=== PATIENT | female | born 1985 | race Caucasian/White ===

== ENCOUNTER → 2022-03-14 | Outpatient (CLI) | payer OTHER ==
--- NOTE | 2022-03-14 10:03 | MM ---
Reason for Exam: Clinical finding. Baseline mammogram. Indicated Problems: Lump or thickening of the left side for 2 Month(s). Patient History: Menarche at age 10. Mother had breast cancer at or over age 50. Last menstrual period: 02/17/2022 Risk Values: Marielle 5 year model risk: 0.9%. NCI Lifetime model risk: 19.6%. Prior Study Comparison: Patient's first Mammogram. Tissue Density: The breast tissue is heterogeneously dense. This may lower the sensitivity of mammography. Findings: Analyzed By CAD. 2.8 cm mass at the site of clinical concern left breast which correlates to the proximal 10:00 position. There is an additional 12:00 mass measuring 1.7 cm. Ultrasound of the left breast is advised. No definite masses of the right breast. Bilateral calcifications are noted. Overall Assessment: Incomplete: need additional imaging evaluation, BI-RAD 0 Management: Diagnostic Breast Ultrasound of the left breast. A clinical breast exam by your physician is recommended on an annual basis and results should be correlated with mammographic findings. This exam should not preclude additional follow-up of suspicious palpable abnormalities. Results were given to the patient verbally at the time of exam. Electronically signed and approved by: Antonio Decker M.D. Radiologis
--- NOTE | 2022-03-14 10:46 | USB ---
Reason for Exam: Clinical finding. Patient History: Menarche at age 10. Mother had breast cancer at or over age 50. Risk Values: Marielle 5 year model risk: 0.9%. NCI Lifetime model risk: 19.6%. Findings: The whole breast of the left breast, the area of palpable concern of the left breast and the axilla of the left breast were scanned. 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 10:00 mass measures 2.5 x 1.0 cm. 11:00 lesion measures 8 mm 12:00 lesion measures 1.5 cm additional 12:00 lesion measures 8 mm. Precautionary six-month follow-up recommended. Overall Assessment: Probably benign, BI-RAD 3 Management: Diagnostic Breast Ultrasound of the left breast in 6 months. A clinical breast exam by your physician is recommended on an annual basis and results should be correlated with mammographic findings. This exam should not preclude additional follow-up of suspicious palpable abnormalities. Results were given to the patient verbally at the time of exam. Electronically signed and approved by: Antonio Decker M.D. Radiologis
== END | disposition home or self-care (01) ==
LOC: RADMAMWWP 09:33
PROVIDERS: ATTEND Family Medicine
DX: N63.24 Unspecified lump in the left breast, lower inner quadrant (principal); Z80.3 Family history of malignant neoplasm of breast
CPT/HCPCS: 77066

== ENCOUNTER → 2022-08-22 | Outpatient (CLI) | payer OTHER ==
--- NOTE | 2022-08-22 15:15 | USB ---
Reason for Exam: Follow-up at short interval from prior study. Patient History: Menarche at age 10. Mother had breast cancer at or over age 50. Risk Values: Marielle 5 year model risk: 0.9%. NCI Lifetime model risk: 19.6%. Technique: Method: Targeted. Prior Study Comparison: 03/14/2022 Left US breast LT, [facility]. 03/14/2022 Bilateral MG diagnostic mammo w CAD GAGAN, [facility]. Findings: The area of palpable concern of the left breast, the medial section of the breast of the left breast, the axilla of the left breast and the retroareolar of the left breast were scanned. Limited ultrasound left breast from 7-12 o'clock was performed with additional evaluation the nipple and axilla. Stable ovoid hypoechoic mass that is parallel in orientation with circumscribed margin and internal color flow at 10:00 6 cm from the nipple. No posterior acoustic features. This measures 2.3 x 1.0 x 2.0 cm, previously 2.5 x 1.0 x 2.3 cm. Additional similar appearing mass within at 12:00 2 cm from the nipple measuring 1.6 x 0.9 x 1.5 cm, previously 1.6 x 0.9 x 1.5 cm. The third similar mass is identified at 12:00 2 cm of the nipple measuring 0.7 x 0.3 x 0.5 cm. Previously measured 0.7 x 0.4 x 0.5 cm. These probably represent fibroadenomas. Additional mass previously seen ultrasound at 8:00 2 cm from the nipple was not appreciated to examine may represent normal breast tissue. Overall Assessment: Probably benign, BI-RAD 3 Management: Diagnostic Breast Ultrasound of the left breast in 6 months. A clinical breast exam by your physician is recommended on an annual basis and results should be correlated with mammographic findings. This exam should not preclude additional follow-up of suspicious palpable abnormalities. Results were given to the patient verbally at the time of exam. Electronically signed and approved by: Adi Andrea D.O.
== END | disposition home or self-care (01) ==
LOC: RADUSWWP 14:31
PROVIDERS: ATTEND Family Medicine
DX: R92.8 Other abnormal and inconclusive findings on diagnostic imaging of breast (principal); Z80.3 Family history of malignant neoplasm of breast

== ENCOUNTER → 2023-02-21 | Outpatient (CLI) | payer OTHER ==
--- NOTE | 2023-02-21 10:19 | USB ---
Reason for Exam: Follow-up at short interval from prior study. Patient History: Menarche at age 10. Mother had breast cancer at or over age 50. Risk Values: Marielle 5 year model risk: 1.0%. NCI Lifetime model risk: 19.5%. Technique: Method: Targeted. Prior Study Comparison: 03/14/2022 Bilateral MG diagnostic mammo w CAD GAGAN, [facility]. Findings: The upper inner quadrant of the left breast, the axilla of the left breast and the retroareolar of the left breast were scanned. Technique utilized:US breast limited LT Image; Ultrasound imaging of: Area of concern, retroareolar region and axilla. Multiple well-circumscribed predominantly hypoechoic masses felt to represent fibroadenomas. The largest measuring up to 2.3 cm. Which is similar to prior at 10:00 6 cm from nipple and another at 12:00 2 cm the nipple is also stable measuring up to 7 mm. Lastly lesion at 12:00 3 7 m the nipple measuring up to 1.7 cm is also stable. Overall Assessment: Benign, BI-RAD 2 Management: Screening Mammogram of both breasts at age 39. A clinical breast exam by your physician is recommended on an annual basis and results should be correlated with mammographic findings. This exam should not preclude additional follow-up of suspicious palpable abnormalities. Results were given to the patient verbally at the time of exam. Electronically signed and approved by: Haile Cameron DO
== END | disposition home or self-care (01) ==
LOC: RADUSWWP 09:34
PROVIDERS: ATTEND Family Medicine
DX: R92.8 Other abnormal and inconclusive findings on diagnostic imaging of breast (principal); Z80.3 Family history of malignant neoplasm of breast

== ENCOUNTER → 2023-06-12 | Outpatient (CLI) | payer OTHER | END | disposition home or self-care (01) | LOC: RADMRIMAIN 15:15 | PROVIDERS: ATTEND Family Medicine | DX: Z53.9 Procedure and treatment not carried out, unspecified reason (principal) ==

== ENCOUNTER → 2023-11-07 | Outpatient (CLI) | payer OTHER ==
--- NOTE | 2023-11-07 08:34 | MM ---
Reason for Exam: Clinical finding. Last mammogram was performed 1 year(s) and 8 month(s) ago. Patient History: Menarche at age 10. Mother had breast cancer at or over age 50. Risk Values: Marielle 5 year model risk: 1.0%. NCI Lifetime model risk: 19.5%. Tissue Density: The breasts are heterogeneously dense, which may obscure small masses. Findings: Analyzed By CAD. Well-circumscribed breast masses left breast are redemonstrated and have been worked up previously as benign. No new masses are identified within either breast. Scattered punctate calcifications are redemonstrated bilaterally. No suspicious cluster seen at this time. Overall Assessment: Benign, BI-RAD 2 Management: Screening Mammogram of both breasts in 1 year. . Results were given to the patient verbally at the time of exam. Patient should continue monthly self-breast exams. A clinical breast exam by your physician is recommended on an annual basis. This exam should not preclude additional follow-up of suspicious palpable abnormalities. Note on Marielle scores and lifetime risk: 1. A Marielle score greater than 3% is considered moderate risk. If this is the case, consider specialist referral to assess eligibility for a risk reducing agent. 2. If overall lifetime risk for the development of breast cancer is 20% or higher, the patient may qualify for future screening with alternating mammogram and breast MRI. Electronically signed and approved by: Antonio Decker M.D. Radiologis
== END | disposition home or self-care (01) ==
LOC: RADMAMWWP 07:46
PROVIDERS: ATTEND Surgery
DX: Z91.89 Other specified personal risk factors, not elsewhere classified (principal); R92.8 Other abnormal and inconclusive findings on diagnostic imaging of breast; R92.333 Mammographic heterogeneous density, bilateral breasts; Z80.3 Family history of malignant neoplasm of breast
CPT/HCPCS: 77066; G0279; 77062

== ENCOUNTER → 2024-11-02 | Outpatient (CLI) | payer OTHER ==
--- NOTE | 2024-11-02 10:26 | MM ---
Reason for Exam: Screening (asymptomatic). Last screening mammogram was performed 12 month(s) ago. Patient History: Menarche at age 10. Patient has no children. Premenopausal. Mother had breast cancer, age 64. Risk Values: Marielle 5 year model risk: 1.2%. NCI Lifetime model risk: 20.4%. Prior Study Comparison: 03/14/2022 Bilateral MG diagnostic mammo w CAD GAGAN, [facility]. 11/07/2023 Bilateral MG 3D diag mammo w/cad GAGAN, [facility]. Tissue Density: The breasts are heterogeneously dense, which may obscure small masses. Findings: Analyzed By CAD. Right breast: There is no suspicious group of microcalcifications or new suspicious mass. Benign-appearing calcifications right breast. Left breast: There is no suspicious group of microcalcifications or new suspicious mass. Benign-appearing calcifications left breast. Right breast: There is no suspicious group of microcalcifications or new suspicious mass. Benign-appearing calcifications right breast. Left breast: Stable left medial breast mass and multiple priors to at least 03/04/2022. There is no suspicious group of microcalcifications or new suspicious mass. Benign-appearing calcifications left breast. Overall Assessment: Benign, BI-RAD 2 Management: Screening Mammogram of both breasts in [address] [facility] will attempt to contact patient to return for supplemental views and ultrasound if indicated. Patient should continue monthly self-breast exams. A clinical breast exam by your physician is recommended on an annual basis. This exam should not preclude additional follow-up of suspicious palpable abnormalities. Note on Marielle scores and lifetime risk: 1. A Marielle score greater than 3% is considered moderate risk. If this is the case, consider specialist referral to assess eligibility for a risk reducing agent. 2. If overall lifetime risk for the development of breast cancer is 20% or higher, the patient may qualify for future screening with alternating mammogram and breast MRI. [facility], , 11/02/2024 10:25 AM. Electronically signed and approved by: Haile Cameron DO
== END | disposition home or self-care (01) ==
LOC: RADMAMWWP 09:39
PROVIDERS: ATTEND Family Medicine
DX: Z12.31 Encounter for screening mammogram for malignant neoplasm of breast (principal); R92.333 Mammographic heterogeneous density, bilateral breasts; Z80.3 Family history of malignant neoplasm of breast
CPT/HCPCS: 77067